=== PATIENT | female | born 2000 | race African-American/Black ===

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

== ENCOUNTER 2023-04-24 22:17 | Emergency (ER) | payer BC, OTHER ==
--- OUTSIDE RECORDS SUMMARY | 2023-04-24 22:19 | XMS REPORT | Continuity of Care Document ---
:2000 Author Organization Formerly [facility] t Address [address] [place] [address] Care Team Providers Name Role Phone [email or web address] Attending Clinician Unavailable [email or web address] Admitting Clinician Unavailable Payers Payer Name Policy Type Policy Number Effective Date Expiration Date [facility] [id number] Problems This patient has no known problems. Allergies, Adverse Reactions, Alerts This patient has no known allergies or adverse reactions. Medications This patient has no known medications. Procedures This patient has no known procedures. Encounters Start End Encounter Admission Attending Care Care Encounter Source Date/Time Date/Time Type Type Clinicians Facility Department ID 2022-08-15 2022-08-15 [facility]patient [facility] [id number] 00:00:00 00:00:00 [id number] 2022-07-24 2022-07-24 Outpatient [facility] [id number] 00:00:00 00:00:00 [id number] 2022-06-14 2022-06-14 Outpatient [facility] [id number] 00:00:00 00:00:00 [id number] 2020-06-28 2020-06-28 Outpatient [facility] [id number] 00:00:00 00:00:00 [id number] Results This patient has no known results.
--- NOTE | 2023-04-24 23:01 | ER ---
Nurse's Notes [facility] Name: Joanie Ulrich Age: 22 yrs Sex: Female : 2000 Arrival Date: 04/24/2023 Time: 22:17 Bed 12 Private MD: Diagnosis: Unspecified open wound, left lower leg Presentation: 04/24 22:36 Chief complaint: Patient states: LEFT MEDIAL CALF DRAINING ABSCESS x2 DAYS, H/O SAME MX bp TIME. Coronavirus screen: At this time, the client does not indicate any symptoms associated with coronavirus-19. Ebola Screen: No symptoms or risks identified at this time. Initial Sepsis Screen: Does the patient meet any 2 criteria? No. Patient's initial sepsis screen is negative. Does the patient have a suspected source of infection? No. Patient's initial sepsis screen is negative. Risk Assessment: Do you want to hurt yourself or someone else? Patient reports no desire to harm self or others. Onset of symptoms is unknown. 22:36 Method Of Arrival: Ambulatory bp 22:36 Acuity: FEROZ 3 bp Historical: - Allergies: 22:37 No Known Allergies; bp - PMHx: 22:37 multiple myopathy; bp - Immunization history:: Adult Immunizations up to date. - Social history:: Smoking status: Patient denies any tobacco usage or history of. Screenin:00 [facility] ED Fall Risk Assessment (Adult) History of falling in the last 3 months, kb3 including since admission No falls in past 3 months (0 pts) Confusion or Disorientation No (0 pts) Intoxicated or Sedated No (0 pts) Impaired Gait No (0 pts) Mobility Assist Device Used No (0 pt) Altered Elimination No (0 pt) Score/Fall Risk Level 0 - 2 = Low Risk Oriented to surroundings, Maintained a safe environment, Educated pt \T\ family on fall prevention, incl call for assistance when getting out of bed. Abuse screen: Denies threats or abuse. Denies injuries from another. Nutritional screening: No deficits noted. Tuberculosis screening: No symptoms or risk factors identified. Assessment: 23:00 General: Appears in no apparent distress. comfortable, Behavior is calm, cooperative, kb3 Pt reports hx of keloids that open and cause wound. Pt is currently on clindamycin for small wound to left lower leg. Wound noted to be dime-sized and healing, surrounding tissue is large area of keloid scarring. Wound bed is pink. No drainage note. Pt reports she took two doses of clindamycin yesterday and the medication made her nauseous. Duglas Garcia offered to prescribe a different antibiotic or to prescribe Zofran for nausea. Pt declined. Wound rinsed with NS and clean dressing applied. 23:00 Pain: Complains of pain in medial aspect of left calf Pain does not radiate. Pain kb3 currently is 8 out of 10 on a pain scale. Quality of pain is described as burning. Injury Description: Wound. Vital Signs: 22:36 BP 141 / 94; Pulse 92; Resp 16; Temp 98; Pulse Ox 100% ; Weight 97.52 kg; Height 5 ft. bp 5 in. ; 22:36 Body Mass Index 35.78 (97.52 kg, 165.1 cm) bp ED Course: 22:23 Patient arrived in ED. jj6 22:31 Duglas Garcia PA is PHCP. cp 22:31 Florencio Brownlee MD is Attending Physician. cp 22:37 Triage completed. bp 22:37 Arm band placed on. bp 22:38 Mati Johnson, CELSA is Primary Nurse. bp 23:00 Miguel Dutta MD is Referral Physician. cp 23:00 Patient has correct armband on for positive identification. Bed in low position. Call kb3 light in reach. Provided Education on: wound care, recommended taking antibiotics with food to reduce nausea. 23:00 No provider procedures requiring assistance completed. Patient did not have IV access kb3 during this emergency room visit. Administered Medications: No medications were administered Medication: 23:00 VIS not applicable for this client. kb3 Outcome: 23:01 Discharge ordered by . cp 23:25 Discharged to home ambulatory, with family. kb3 23:25 Condition: stable 23:25 Discharge instructions given to patient, family, Instructed on discharge instructions, follow up and referral plans. medication usage, Demonstrated understanding of instructions, follow-up care, medications. 23:32 Patient left the ED. kb3 Signatures: Duglas Garcia PA PA cp Mati Johnson, RN RN bp Pamella Raman jj6 Olga Lidia Martinez RN RN kb3
--- NOTE | 2023-04-24 23:01 | EDPHYS ---
Physician Documentation [facility] Name: Joanie Ulrich Age: 22 yrs Sex: Female : 2000 Arrival Date: 04/24/2023 Time: 22:17 Bed 12 Private MD: ED Physician Florencio Brownlee Historical: - Allergies: 04/24 22:37 No Known Allergies; bp - PMHx: 22:37 multiple myopathy; bp - Immunization history:: Adult Immunizations up to date. - Social history:: Smoking status: Patient denies any tobacco usage or history of. Vital Signs: 22:36 BP 141 / 94; Pulse 92; Resp 16; Temp 98; Pulse Ox 100% ; Weight 97.52 kg; Height 5 ft. bp 5 in. ; 22:36 Body Mass Index 35.78 (97.52 kg, 165.1 cm) bp MDM: 22:39 Patient medically screened. cp Administered Medications: No medications were administered Disposition Summary: 04/24/23 23:01 Discharge Ordered Location: Home cp Problem: an ongoing problem cp Symptoms: are unchanged cp Condition: Stable cp Diagnosis - Unspecified open wound, left lower leg cp Followup: cp - With: Miguel Dutta MD - When: 1 - 2 days - Reason: Wound Recheck Discharge Instructions: - Discharge Summary Sheet cp - Wound Infection cp - Wound Care, Adult cp Forms: - Medication Reconciliation Form cp - Thank You Letter cp - Antibiotic Education cp - Prescription Opioid Use cp - Patient Portal Instructions cp - Leadership Thank You Letter cp Signatures: Duglas Garcia PA PA cp Mati Johnson, RN RN bp
[2023-04-25 00:12] VITALS: BP 141/94; TEMP 98; O2SAT 100
== END 2023-04-24 23:32 | disposition home or self-care (01) ==
LOC: ER 22:17
DX: S81.802A Unspecified open wound, left lower leg, initial encounter (principal)
CPT/HCPCS: 99282